=== PATIENT | male | born 1990 | race Caucasian/White ===

== ENCOUNTER → 2023-05-08 21:14 | Outpatient (CLI) | payer OTHER, SELFPAY ==
--- NOTE | 2023-05-08 16:35 | DI.RAD_ITS ---
Exam(s) XR ELBOW LT COMPLETE EXAM: XR ELBOW LT COMPLETE CLINICAL HISTORY: left elbow pain, injury M25.522 PAIN LEFT ELBOW. TECHNIQUE: 2D digital imaging was performed. COMPARISON: No exams were available for comparison FINDINGS: 3 views There is a very subtle cortical irregularity on the medial surface of the radial head, possibly subtl e cortical surface fracture at this level. There is no abnormality of the adjacent capitellum. Radi al neck is intact. Epicondyles unremarkable. There is no obvious joint effusion. No swelling of the olecranon bursa. IMPRESSION: Possible very subtle fracture of the radial head articular surface. DATA REPOSITORY: RADIATION DOSE DELIVERED:
== END ==
PROVIDERS: Visit Provider Physician Assistant
DX: M25.522 Pain in left elbow (principal)
CPT/HCPCS: 73080